=== PATIENT | female | born 2000 | race Native Hawaiian/Other Pacific Islander ===

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

== ENCOUNTER → 2018-06-14 16:57 | Outpatient (CLI) | payer OTHER | END | disposition home or self-care (01) | LOC: AMB 16:57 | DX: Z04.3 Encounter for examination and observation following other accident (principal) ==